=== PATIENT | male | born 1985 | race African-American/Black ===

== ENCOUNTER 2020-01-09 18:54 | Emergency (ER) | payer OTHER ==
[~2020-01-09] VITALS: Ht 170.2 cm; Wt 77.1 kg
[2020-01-09 19:08] VITALS: BP 121/59
[2020-01-09] MEDS ORDERED: ROBAXIN-750750 MG PO (19:11)
[2020-01-09] MEDS ORDERED: IBUPROFEN600 M1 ORAL (19:11)
[2020-01-09] MEDS ORDERED: Ketorolac 60mg Inj IM ONE (19:15)
[2020-01-09] MEDS ORDERED: Methocarbamol 500mg tab ORAL ONE (19:15)
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
[2020-01-09 19:29] VITALS: BP 121/59
== END 2020-01-09 19:29 | disposition home or self-care (01) ==
LOC: EMR 19:15
DX: M62.830 Muscle spasm of back (principal); V43.52XA Car driver injured in collision with other type car in traffic accident, initial encounter; Y92.411 Interstate highway as the place of occurrence of the external cause
CPT/HCPCS: 96372; 99283